=== PATIENT | female | born 1965 | race Caucasian/White ===

== ENCOUNTER 2020-07-10 11:53 | Emergency (ER) | payer OTHER ==
[2020-07-10 12:04] VITALS: BP 133/82; PULSE 95; RESP 16; TEMP 97.8
--- NOTE | 2020-07-10 12:50 | ED ---
Extremity Problem HPI - General Chief complaint: Extremity Problem,Nontraumatic Stated complaint: Hand pain/no injury Time Seen by Provider: 07/10/20 12:14 Source: patient Mode of arrival: ambulatory Limitations: no limitations - History of Present Illness Initial comments: Patient is a 55 -year-old female presents to emergency Department with chief complaint of right breast pain that has been ongoing for the past 2 weeks. Patient reports she noticed some swelling along the lateral aspect of the wrist near the thumb. She denies any injuries to the region. Patient reports it is quite tender to the touch denies any overlying erythematous or ecchymotic changes. Denies any history of carpal tunnel. 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 Patient reports taking [id number] analgesics no significant improvement in symptoms. States the pain is exacerbated with medial deviation of the wrist. Reports occasional pain radiating to the elbow. Denies any paresthesias. - Related Data Allergies Allergy/AdvReac Type Severity Reaction Status Date / Time No Known Allergies Allergy Verified 07/10/20 11:59 Review of Systems ROS Statement: Those systems with pertinent positive or pertinent negative responses have been documented in the HPI. ROS Other: All systems not noted in ROS Statement are negative. Past Medical History Past Medical History: No Reported History History of Any Multi-Drug Resistant Organisms: None Reported Past Surgical History: Orthopedic Surgery Past Psychological History: No Psychological Hx Reported Smoking Status: Current every day smoker Past Alcohol Use History: None Reported Past Drug Use History: Marijuana General Exam Limitations: no limitations General appearance: alert, in no apparent distress Head exam: Present: atraumatic, normocephalic, normal inspection Eye exam: Present: normal appearance, PERRL, EOMI Pupils: Present: normal accommodation ENT exam: Present: normal exam, normal oropharynx, mucous membranes moist, TM's normal bilaterally, normal external ear exam Neck exam: Present: normal inspection, full ROM. Absent: tenderness Respiratory exam: Present: normal lung sounds bilaterally. Absent: respiratory distress Cardiovascular Exam: Present: regular rate, normal rhythm, normal heart sounds. Absent: systolic murmur Extremities exam: Present: full ROM, tenderness (Tenderness over the slightly swollen region. Positive Ally test. Negative [place] and Phalen test), normal capillary refill, other (Palpable ulnar and radial pulses.). Absent: normal inspection (Very mild swelling along the lateral aspect of her right wrist.) Back exam: Present: normal inspection, full ROM. Absent: tenderness, CVA tenderness (R), CVA tenderness (L) Neurological exam: Present: alert, oriented X3 Psychiatric exam: Present: normal affect, normal mood Skin exam: Present: warm, dry, intact, normal color Course Vital Signs 07/10/20 12:00 Temperature 97.8 F Pulse Rate 95 Respiratory 16 Rate Blood Pressure 133/82 O2 Sat by Pulse 99 Oximetry Medical Decision Making - Medical Decision Making 55-year-old female presents to the emergency department with a chief complaint wrist pain. Patient is neurovascularly intact. Positive physical sign test. Negative Phalen and Christina test. Patient likely has dequervian tenosynovitis. I applied John wrap for compression and immobilization of the wrist. Advised Tylenol or Motrin for symptomatically relief. Advised to follow with biomedical equipment specialist. Return parameters were discussed with patient was understanding and agreeable. Case discussed with Disposition Clinical Impression: Wrist pain, right Disposition: HOME SELF-CARE Condition: Stable Instructions (If sedation given, give patient instructions): DeQuervain Release (DC) Additional Instructions: Follow with biomedical equipment specialist. Tylenol or Motrin for pain. Return to emergency department if symptoms worsen. Is patient prescribed a controlled substance at d/c from ED?: No Referrals: None,Stated [Primary Care Provider] - 1-2 days Ben Medrano MD [STAFF PHYSICIAN] - 1-2 days Time of Disposition: 12:49
== END 2020-07-10 13:07 | disposition home or self-care (01) ==
LOC: EDBD → EC 11:53
DX: M25.531 Pain in right wrist (principal); F17.200 Nicotine dependence, unspecified, uncomplicated
CPT/HCPCS: 99282